=== PATIENT | female | born 1980 | race Caucasian/White ===

== ENCOUNTER 2017-07-20 16:03 | Emergency (ER) | payer MEDICAID, OTHER ==
[~2017-07-20] VITALS: Ht 147.3 cm; Wt 51.8 kg
[~2017-07-20 16:03] MED LIST: CEPH500 PO
[2017-07-20] MEDS ORDERED: IBUPROFEN 600 MG TABLET PO ONE (18:30)
[2017-07-20 20:36] VITALS: BP 128/66
== END 2017-07-20 20:41 | disposition home or self-care (01) ==
LOC: EMS 16:05
DX: S46.912A Strain of unspecified muscle, fascia and tendon at shoulder and upper arm level, left arm, initial encounter (principal); M25.522 Pain in left elbow; Z98.51 Tubal ligation status; Z98.890 Other specified postprocedural states; X58.XXXA Exposure to other specified factors, initial encounter; Y93.89 Activity, other specified; Y92.89 Other specified places as the place of occurrence of the external cause; Y99.8 Other external cause status
CPT/HCPCS: 99284

== ENCOUNTER 2022-01-04 17:21 | Emergency (ER) | payer OTHER ==
[~2022-01-04] VITALS: Ht 152.4 cm; Wt 70.5 kg
[2022-01-04 22:07] VITALS: BP 115/85
== END 2022-01-04 22:10 | disposition home or self-care (01) ==
LOC: EMS 17:21
DX: S40.022A Contusion of left upper arm, initial encounter (principal); J45.909 Unspecified asthma, uncomplicated; M79.622 Pain in left upper arm; Z87.448 Personal history of other diseases of urinary system; Z98.51 Tubal ligation status; Z98.890 Other specified postprocedural states; X58.XXXA Exposure to other specified factors, initial encounter; Y93.89 Activity, other specified; Y92.89 Other specified places as the place of occurrence of the external cause; Y99.8 Other external cause status
CPT/HCPCS: 84703; 85379; 93971; 99284